=== PATIENT | male | born 1960 | race Caucasian/White ===

== ENCOUNTER 2022-09-28 20:26 | Emergency (ER) | payer OTHER, BC ==
[2022-09-28] MEDS ORDERED: Cephalexin 500 MG CAP ONE (21:08)
[2022-09-28] MEDS ORDERED: Acetaminophen 500 MG TAB ONE (21:08)
[2022-09-28] MEDS ORDERED: Bacitracin 1 PK ONE ×2 (21:08→21:11)
== END 2022-09-28 23:54 | disposition home or self-care (01) ==
LOC: MADERS 20:26
DX: S16.1XXA Strain of muscle, fascia and tendon at neck level, initial encounter (principal); S50.812A Abrasion of left forearm, initial encounter; S80.212A Abrasion, left knee, initial encounter; S70.311A Abrasion, right thigh, initial encounter; S00.01XA Abrasion of scalp, initial encounter; E11.9 Type 2 diabetes mellitus without complications; E03.9 Hypothyroidism, unspecified; E78.00 Pure hypercholesterolemia, unspecified; I10 Essential (primary) hypertension; E66.9 Obesity, unspecified; V86.95XA Unspecified occupant of 3- or 4- wheeled all-terrain vehicle (ATV) injured in nontraffic accident, initial encounter
CPT/HCPCS: 70450; 72125; 72128